=== PATIENT | male | born 1945 | race African-American/Black ===

== ENCOUNTER 2024-03-03 06:13 | Emergency (ER) | payer OTHER, MEDICAID ==
[~2024-03-03] VITALS: Ht 182.9 cm; Wt 159.0 kg
[2024-03-03 06:19] VITALS: TEMP 98.1; O2SAT 98
[2024-03-03 07:26] LABS: BASOPHILS % 0.3 % (0.0-2.0); EOSINOPHILS % 1.1 % (0.0-5.0); HEMATOCRIT. 33.4 % (42.0-52.0); HEMOGLOBIN. 10.7 g/dL (14.0-18.0); LYMPHOCYTES % 14.4 % (20.0-50.0); MEAN CORPUSCULAR HEMOGLOBIN 35.4 pg (28.0-32.0); MEAN CORPUSCULAR HGB CONC 32.1 g/dL (31.0-37.0); MEAN CORPUSCULAR VOLUME 110.3 fL (80.0-94.0); MEAN PLATELET VOLUME 7.7 fl (7.4-10.4); MONOCYTES % 10.7 % (2.0-8.0); NEUTROPHILS % 73.5 % (40.0-76.0); PLATELET 188 x1000/uL (130-400); RED BLOOD CELL COUNT 3.03 mill/uL (4.7-6.1); WHITE BLOOD COUNT 5.2 x1000/uL (4.5-11.0)
[2024-03-03 07:32] LABS: CHLORIDE 111 mEq/L (98-107); POTASSIUM 4.3 mEq/L (3.5-5.1); SODIUM 145 mEq/L (136-145)
[2024-03-03 07:33] LABS: CALCIUM 10.8 mg/dL (8.7-10.4); CARBON DIOXIDE 23 mEq/L (21-32)
[2024-03-03 07:37] LABS: CREATININE 4.4 mg/dL (0.6-1.3)
[2024-03-03 07:38] LABS: GLUCOSE 92 mg/dL (70-105); UREA NITROGEN BLOOD 45 mg/dL (9-23)
[2024-03-03 07:40] LABS: ALANINE AMINOTRANSFERASE < 7 IU/L (10-49); ALBUMIN 3.8 g/dL (3.2-4.8); ASPARTATE AMINOTRANSFERASE 11 IU/L (<34); BILIRUBIN TOTAL 0.5 mg/dL (0.1-1.0); PROTEIN TOTAL 6.2 g/dL (6.0-8.3)
[2024-03-03 07:41] LABS: ADD RBC MORPHOLOGY YES; DIFFERENTIAL COMMENT 1
[2024-03-03 09:03] LABS: PLATELET ESTIMATE NORMAL
[2024-03-03 09:04] LABS: ANISOCYTOSIS 1+
[2024-03-03] MEDS: LABETALOL 5MG/ML 4ML INJ IV ONE (12:09)
[2024-03-03 13:57] VITALS: BP 197/93; PULSE 99; RESP 13; O2SAT 97
== END 2024-03-03 16:33 | disposition home or self-care (01) ==
LOC: ER 06:13 → CANBEDREQ 13:53 → ER 16:33
DX: M79.631 Pain in right forearm (principal); N17.9 Acute kidney failure, unspecified; D64.9 Anemia, unspecified; I10 Essential (primary) hypertension; G20.A1 Parkinson's disease without dyskinesia, without mention of fluctuations; Z98.890 Other specified postprocedural states; Z85.46 Personal history of malignant neoplasm of prostate; Z88.0 Allergy status to penicillin
CPT/HCPCS: 99285; 96374; 93971; 80053; 85025; 36415; 93922; 73090; J3490; A4663; A4606

== ENCOUNTER 2024-03-05 14:12 | Emergency (ER) | payer OTHER, MEDICAID ==
[~2024-03-05] VITALS: Ht 182.9 cm; Wt 136.0 kg
[2024-03-05 14:17] VITALS: TEMP 98.1; O2SAT 97
[2024-03-05] MEDS ORDERED: IOHEXOL-350 100 ML BOTTLE ONE (15:19)
[2024-03-05] MEDS: ATORVASTATIN CALCIUM 40MG TABLET PO SCH (15:39)
[2024-03-05] MEDS: ASPIRIN 325MG EC TABLET PO ONE (15:39)
[2024-03-05 16:48] LABS: HEMATOCRIT. 34.2 % (42.0-52.0); HEMOGLOBIN. 11.1 g/dL (14.0-18.0); MEAN CORPUSCULAR HEMOGLOBIN 35.3 pg (28.0-32.0); MEAN CORPUSCULAR HGB CONC 32.5 g/dL (31.0-37.0); MEAN CORPUSCULAR VOLUME 108.6 fL (80.0-94.0); MEAN PLATELET VOLUME 8.5 fl (7.4-10.4); PLATELET 151 x1000/uL (130-400); RED BLOOD CELL COUNT 3.15 mill/uL (4.7-6.1); RED CELL DISTRIBUTION WIDTH 16.8 % (11.6-14.6); WHITE BLOOD COUNT 6.6 x1000/uL (4.5-11.0)
[2024-03-05 16:56] LABS: DIFFERENTIAL COMMENT 1; PROTHROMBIN TIME 10.9 sec (9.6-11.0)
[2024-03-05 17:03] LABS: CHLORIDE 112 mEq/L (98-107); POTASSIUM 4.4 mEq/L (3.5-5.1); SODIUM 144 mEq/L (136-145)
[2024-03-05 17:04] LABS: CALCIUM 10.5 mg/dL (8.7-10.4); CARBON DIOXIDE 16 mEq/L (21-32)
[2024-03-05 17:09] LABS: CREATININE 4.9 mg/dL (0.6-1.3); GLUCOSE 85 mg/dL (70-105); UREA NITROGEN BLOOD 58 mg/dL (9-23)
[2024-03-05 17:42] LABS: ETHANOL BLOOD < 10 mg/dL (<10); TROPONIN I HIGH SENSITIVITY 72 ng/L (3.0-53)
[2024-03-05 19:56] LABS: ANISOCYTOSIS 1+; PLATELET ESTIMATE NORMAL
[2024-03-05] MEDS: ASPIRIN 300MG SUPP PR ONE (20:06)
[2024-03-05 21:59] VITALS: BP 151/92; PULSE 87; RESP 18; O2SAT 98
== END 2024-03-05 22:18 | disposition short-term general hospital (02) ==
LOC: ER 14:16 → EDBEDREQ 14:41 → ER 22:18
DX: R29.810 Facial weakness (principal); I10 Essential (primary) hypertension; N28.9 Disorder of kidney and ureter, unspecified; Z88.0 Allergy status to penicillin
CPT/HCPCS: 80048; 80320; 85025; 85610; 84484; 36415; 71045; 70496; 70498; 70450; 93005; 99291; Q9967; G0480

== ENCOUNTER 2024-05-15 22:28 | Emergency (ER) | payer OTHER, MEDICAID ==
[~2024-05-15] VITALS: Ht 167.6 cm; Wt 119.0 kg
[2024-05-15 22:34] VITALS: O2SAT 98
[2024-05-15 23:12] LABS: HEMATOCRIT. 37.2 % (42.0-52.0); HEMOGLOBIN. 11.9 g/dL (14.0-18.0); MEAN CORPUSCULAR HEMOGLOBIN 32.6 pg (28.0-32.0); MEAN CORPUSCULAR HGB CONC 31.9 g/dL (31.0-37.0); MEAN CORPUSCULAR VOLUME 102.1 fL (80.0-94.0); MEAN PLATELET VOLUME 9.4 fl (7.4-10.4); PLATELET 147 x1000/uL (130-400); RED BLOOD CELL COUNT 3.64 mill/uL (4.7-6.1); RED CELL DISTRIBUTION WIDTH 16.6 % (11.6-14.6); WHITE BLOOD COUNT 7.4 x1000/uL (4.5-11.0)
[2024-05-15 23:20] LABS: DIFFERENTIAL COMMENT 1
[2024-05-15 23:26] LABS: CHLORIDE 97 mEq/L (98-107); POTASSIUM 4.3 mEq/L (3.5-5.1); SODIUM 140 mEq/L (136-145)
[2024-05-15 23:27] LABS: CARBON DIOXIDE 30 mEq/L (21-32)
[2024-05-15 23:28] LABS: CALCIUM 11.4 mg/dL (8.7-10.4)
[2024-05-15 23:32] LABS: GLUCOSE 166 mg/dL (70-105); TROPONIN I HIGH SENSITIVITY 35 ng/L (3.0-53)
[2024-05-15 23:33] LABS: PARTIAL THROMBOPLASTIN TIME 23.5 sec (23.4-31.0); PROTHROMBIN TIME 10.5 sec (9.6-11.0); UREA NITROGEN BLOOD 66 mg/dL (9-23)
[2024-05-16 00:05] LABS: ETHANOL BLOOD < 10 mg/dL (<10)
[2024-05-16 00:13] LABS: CREATININE 5.8 mg/dL (0.6-1.3)
[2024-05-16] MEDS: ACETAMINOPHEN 325MG TABLET PO NR (01:04)
[2024-05-16 01:19] LABS: ANISOCYTOSIS 1+; PLATELET ESTIMATE NORMAL
[2024-05-16 03:33] LABS: TROPONIN I HIGH SENSITIVITY 47 ng/L (3.0-53)
[2024-05-16] MEDS: MORPHINE SULFATE 4 MG/ML INJ (FOR IV/IM USE) IV ONE (04:20)
[2024-05-16] MEDS: HYDROCODONE/ACETAMINOPHEN 5/325MG TABLET PO ONE (04:23)
[2024-05-16 05:58] VITALS: BP 114/75; PULSE 63; RESP 14; TEMP 36.4; O2SAT 95
== END 2024-05-16 06:20 | disposition short-term general hospital (02) ==
LOC: ER 22:28 → EDBEDREQ 22:48 → ER 05-16 06:20
DX: R53.1 Weakness (principal); R07.89 Other chest pain; R94.31 Abnormal electrocardiogram [ECG] [EKG]; G20.A1 Parkinson's disease without dyskinesia, without mention of fluctuations; I12.0 Hypertensive chronic kidney disease with stage 5 chronic kidney disease or end stage renal disease; N18.6 End stage renal disease; I25.2 Old myocardial infarction; Z85.46 Personal history of malignant neoplasm of prostate; Z88.0 Allergy status to penicillin
CPT/HCPCS: 36415; 71045; 80048; 80320; 83880; 84484; 85025; 93005; 99285; G0480

== ENCOUNTER 2024-07-27 19:10 | Inpatient (IN) | payer OTHER, MEDICAID ==
[~2024-07-27] VITALS: Ht 152.4 cm; Wt 107.5 kg
[2024-07-27 19:27] VITALS: RESP 16
[2024-07-27 19:44] LABS: BASOPHILS % 0.3 % (0.0-2.0); EOSINOPHILS % 0.8 % (0.0-5.0); HEMOGLOBIN. 8.9 g/dL (14.0-18.0); LYMPHOCYTES % 11.7 % (20.0-50.0); MEAN CORPUSCULAR HEMOGLOBIN 34.3 pg (28.0-32.0); MEAN CORPUSCULAR HGB CONC 33.1 g/dL (31.0-37.0); MEAN CORPUSCULAR VOLUME 103.6 fL (80.0-94.0); MEAN PLATELET VOLUME 8.6 fl (7.4-10.4); MONOCYTES % 4.7 % (2.0-8.0); NEUTROPHILS % 82.5 % (40.0-76.0); PLATELET 177 x1000/uL (130-400); RED CELL DISTRIBUTION WIDTH 19.9 % (11.6-14.6); WHITE BLOOD COUNT 6.8 x1000/uL (4.5-11.0)
[2024-07-27 19:45] LABS: BG BASE EXCESS -8.8 mmol/L (-2.0-3.0); BG CARBOXYHEMOGLOBIN 0.8 % (0.5-1.5); BG DEOXYHEMOGLOBIN 0.2 % (0.0-5.0); BG FRACTION INSPIRED OXYGEN 80; BG HCO3 ACT 16.3 mmol/L (21.0-28.0); BG METHEMOGLOBIN 0.3 % (0.5-1.5); BG OXYGEN SATURATION 99.8 % (94.0-98.0); BG OXYHEMOGLOBIN 98.7 % (94.0-98.0); BG PCO2 32.2 mmHg (35.0-48.0); BG PH 7.323 (7.350-7.450); BG PO2 299.2 mmHg (83.0-108.0); BG SAMPLE SITE RIGHT RADIAL; BG TOTAL HEMOGLOBIN 9.5 g/dL (13.5-17.5); BG VENT MODE MASK - BIPAP
[2024-07-27] MEDS: SODIUM CHLORIDE 0.9% (SEPSIS BOLUS) IV ONE (19:45)
[2024-07-27] MEDS: LEVOFLOXACIN 750MG PREMIX 150 ML IV ONE (19:45)
[2024-07-27 19:46] LABS: DIFFERENTIAL COMMENT 1
[2024-07-27 19:53] LABS: CHLORIDE 104 mEq/L (98-107); POTASSIUM 4.1 mEq/L (3.5-5.1); SODIUM 135 mEq/L (136-145)
[2024-07-27 19:54] LABS: CARBON DIOXIDE 18 mEq/L (21-32)
[2024-07-27 19:55] LABS: CALCIUM 9.1 mg/dL (8.7-10.4)
[2024-07-27 20:01] LABS: INR 1.3; PROTHROMBIN TIME 13.2 sec (9.6-11.0)
[2024-07-27 20:06] LABS: GLUCOSE 62 mg/dL (70-105); UREA NITROGEN BLOOD 83 mg/dL (9-23)
[2024-07-27 20:08] LABS: ALANINE AMINOTRANSFERASE < 7 IU/L (10-49); ASPARTATE AMINOTRANSFERASE 72 IU/L (<34); BILIRUBIN DIRECT 0.2 mg/dL (<=3.0); BILIRUBIN TOTAL 0.6 mg/dL (0.1-1.0); PROTEIN TOTAL 5.2 g/dL (6.0-8.3)
[2024-07-27 20:33] LABS: TROPONIN I HIGH SENSITIVITY 90 ng/L (3.0-53)
[2024-07-27 20:34] LABS: CREATININE 5.5 mg/dL (0.6-1.3)
[2024-07-27] MEDS: VANCOMYCIN 1G PREMIX 200 ML IV ONE (21:07)
[2024-07-27 21:26] VITALS: RESP 18
[2024-07-27 22:27] LABS: D-DIMER 3.56 mg/L FEU (<0.50); PARTIAL THROMBOPLASTIN TIME 41.9 sec (23.4-31.0)
[2024-07-27] MEDS: DEXTROSE 50% WATER 50ML SYRINGE IV ONE ×2 (22:32→23:00)
[2024-07-27] MEDS ORDERED: NOREPINEPHRINE 8 MG in DEXT 5% WATER 242 ML IV STA (22:48)
[2024-07-27] MEDS: NOREPINEPHRINE 8MG/250ML PMX 250ML IV PRN (23:05)
[2024-07-27] MEDS ORDERED: HEPARIN 25,000 UNITS PREMIX 250 ML IV STA (23:07)
[2024-07-27] MEDS ORDERED: VANCOMYCIN 1G PREMIX 200 ML IV NR (23:30)
[2024-07-28] VITALS (87 sets, daily range): BP systolic 92–163; BP diastolic 54–130; PULSE 72–99; RESP 8–39; TEMP 36.2–36.6; O2SAT 97–100
[2024-07-28] MEDS ORDERED: ACETAMINOPHEN 325MG TABLET PO PRN (00:30)
[2024-07-28] MEDS ORDERED: IPRATROPIUM/ALBUTEROL 0.5-3(2.5)MG/3ML NEB HHN PRN (00:30)
[2024-07-28] MEDS ORDERED: ONDANSETRON HCL 4MG/2ML INJ IV PRN (00:30)
[2024-07-28] MEDS: HEPARIN 80 UNITS/KG BOLUS IV SCH (00:34)
[2024-07-28] MEDS: HEPARIN 25,000 UNITS PREMIX 250 ML IV SCH (00:39)
[2024-07-28] MEDS: HEPARIN 25,000 UNITS PREMIX 250 ML IV STA (00:39)
[2024-07-28] MEDS: HEPARIN 5000 UNITS/ML VIAL IV ONE (00:40)
[2024-07-28] MEDS: IPRATROPIUM/ALBUTEROL 0.5-3(2.5)MG/3ML NEB HHN SCH (01:48)
[2024-07-28] MEDS: RACEPINEPHRINE 2.25% 0.5ML NEB VIAL HHN PRN (02:37)
[2024-07-28] MEDS: DEXAMETHASONE 10 MG/ML VIAL IV SCH (03:52)
[2024-07-28] MEDS: VANCOMYCIN 1G PREMIX 200 ML IV NR (04:03)
[2024-07-28] MEDS: MAGNESIUM 2 G PREMIX 50 ML IV NR (04:13)
[2024-07-28] MEDS: DEXT 5%/0.45% NACL 1000ML 1,000 ML IV SCH (04:14)
[2024-07-28] MEDS ORDERED: HEPARIN BOLUS PRN aPTT 37-44 IV (06:00)
[2024-07-28] MEDS ORDERED: DEXAMETHASONE 10 MG/ML VIAL IV SCH (06:00)
[2024-07-28 07:22] LABS: BG CARBOXYHEMOGLOBIN 0.6 % (0.5-1.5); BG DEOXYHEMOGLOBIN 5.8 % (0.0-5.0); BG FRACTION INSPIRED OXYGEN 21; BG HCO3 ACT 12.9 mmol/L (21.0-28.0); BG OXYGEN SATURATION 94.2 % (94.0-98.0); BG OXYHEMOGLOBIN 93.6 % (94.0-98.0); BG PCO2 30.1 mmHg (35.0-48.0); BG PH 7.251 (7.350-7.450); BG PO2 79.9 mmHg (83.0-108.0); BG SAMPLE SITE LEFT RADIAL; BG TOTAL HEMOGLOBIN 9.8 g/dL (13.5-17.5); BG VENT MODE ROOM AIR
[2024-07-28 07:22] LABS: BG BASE EXCESS -10.9 mmol/L (-2.0-3.0); BG CARBOXYHEMOGLOBIN 0.1 % (0.5-1.5); BG DEOXYHEMOGLOBIN 0.3 % (0.0-5.0); BG FRACTION INSPIRED OXYGEN 100; BG HCO3 ACT 15.3 mmol/L (21.0-28.0); BG METHEMOGLOBIN 0.3 % (0.5-1.5); BG OXYGEN SATURATION 99.7 % (94.0-98.0); BG OXYHEMOGLOBIN 99.3 % (94.0-98.0); BG PCO2 35.3 mmHg (35.0-48.0); BG PH 7.256 (7.350-7.450); BG PO2 438.2 mmHg (83.0-108.0); BG SAMPLE SITE RIGHT RADIAL; BG VENT MODE HIGH FLOW
[2024-07-28 07:56] LABS: HEMATOCRIT. 26.8 % (42.0-52.0); MEAN CORPUSCULAR HEMOGLOBIN 35.1 pg (28.0-32.0); MEAN CORPUSCULAR HGB CONC 33.5 g/dL (31.0-37.0); MEAN CORPUSCULAR VOLUME 104.5 fL (80.0-94.0); MEAN PLATELET VOLUME 9.3 fl (7.4-10.4); PLATELET 145 x1000/uL (130-400); RED BLOOD CELL COUNT 2.56 mill/uL (4.7-6.1); RED CELL DISTRIBUTION WIDTH 20.1 % (11.6-14.6)
[2024-07-28] MEDS ORDERED: NOREPINEPHRINE 8 MG in DEXT 5% WATER 242 ML IV PRN (08:00)
[2024-07-28 08:02] LABS: DIFFERENTIAL COMMENT 1
[2024-07-28 08:09] LABS: CREATINE KINASE MB FRACTION 30.4 ng/mL (0.5-3.6)
[2024-07-28] MEDS ORDERED: NOREPINEPHRINE 8MG/250ML PMX 250 ML IV PRN (08:30)
[2024-07-28 08:54] LABS: CALCIUM 8.6 mg/dL (8.7-10.4); CREATININE 4.9 mg/dL (0.6-1.3); POTASSIUM 4.5 mEq/L (3.5-5.1); T4 FREE 1.15 ng/dL (0.89-1.76); THYROID STIMULATING HORMONE 2.46 uIU/mL (0.55-4.78)
[2024-07-28] MEDS: FAMOTIDINE 20MG/2ML VIAL IV SCH (09:29)
[2024-07-28] MEDS: NOREPINEPHRINE 8MG/250ML PMX 250 ML IV PRN (09:30)
[2024-07-28] MEDS: LIDOCAINE HCL 1% 10 MG/ML 10ML VIAL ONE (09:44)
[2024-07-28 10:02] LABS: ANISOCYTOSIS 2+; PLATELET ESTIMATE NORMAL
[2024-07-28 11:40] LABS: FOLIC ACID (FOLATE) SERUM > 20.00 ng/mL (>5.38)
[2024-07-28 11:41] LABS: VITAMIN B12 SERUM 694 pg/mL (211-911)
[2024-07-28] MEDS ORDERED: CARV3.1242 PO (11:48)
[2024-07-28] MEDS ORDERED: APIX5TAB PO (11:48)
[2024-07-28 11:54] LABS: HEMATOCRIT. 26.9 % (42.0-52.0); HEMOGLOBIN. 8.9 g/dL (14.0-18.0); MEAN CORPUSCULAR HEMOGLOBIN 34.7 pg (28.0-32.0); MEAN CORPUSCULAR HGB CONC 33.2 g/dL (31.0-37.0); MEAN CORPUSCULAR VOLUME 104.5 fL (80.0-94.0); MEAN PLATELET VOLUME 9.3 fl (7.4-10.4); PLATELET 135 x1000/uL (130-400); RED BLOOD CELL COUNT 2.58 mill/uL (4.7-6.1); RED CELL DISTRIBUTION WIDTH 20.5 % (11.6-14.6); WHITE BLOOD COUNT 9.3 x1000/uL (4.5-11.0)
[2024-07-28 11:55] LABS: CHLORIDE 108 mEq/L (98-107); POTASSIUM 4.6 mEq/L (3.5-5.1); SODIUM 136 mEq/L (136-145)
[2024-07-28] MEDS ORDERED: CARB-121 MT (11:55)
[2024-07-28] MEDS ORDERED: LIP40 MT (11:55)
[2024-07-28] MEDS ORDERED: CINA30 PO (11:55)
[2024-07-28] MEDS ORDERED: ALLO100T57 PO (11:55)
[2024-07-28] MEDS ORDERED: FURO-152 PO (11:55)
[2024-07-28 11:56] LABS: CALCIUM 8.7 mg/dL (8.7-10.4); CARBON DIOXIDE 17 mEq/L (21-32)
[2024-07-28 12:01] LABS: GLUCOSE 104 mg/dL (70-105)
[2024-07-28 12:02] LABS: UREA NITROGEN BLOOD 77 mg/dL (9-23)
[2024-07-28 12:03] LABS: ALANINE AMINOTRANSFERASE < 7 IU/L (10-49); ALBUMIN 2.9 g/dL (3.2-4.8); ASPARTATE AMINOTRANSFERASE 63 IU/L (<34); DIFFERENTIAL COMMENT 1
[2024-07-28 12:04] LABS: BILIRUBIN TOTAL 0.4 mg/dL (0.1-1.0); PHOSPHORUS 6.1 mg/dL (2.5-4.9); PROTEIN TOTAL 5.1 g/dL (6.0-8.3)
[2024-07-28 12:07] LABS: CREATININE 5.2 mg/dL (0.6-1.3)
[2024-07-28 12:19] LABS: HEPATITIS B SURFACE ANTIGEN NEGATIVE (Negative)
[2024-07-28 12:40] LABS: HEPATITIS C AB NON REACTIVE (Neg) (Negative)
[2024-07-28 12:44] LABS: PLATELET ESTIMATE NORMAL
[2024-07-28 12:45] LABS: ANISOCYTOSIS 2+
[2024-07-28] MEDS: SODIUM BICARBONATE 650MG TABLET PO SCH (13:09)
[2024-07-28] MEDS: HEPARIN BOLUS PRN aPTT <36 IV (14:22)
[2024-07-28] MEDS: HYDROCODONE/ACETAMINOPHEN 5/325MG TABLET PO PRN (19:35)
[2024-07-28 20:53] LABS: CREATINE KINASE MB FRACTION 19.6 ng/mL (0.5-3.6)
[2024-07-28 21:53] LABS: CLARITY URINE TURBID (CLEAR); COLOR URINE YELLOW (YELLOW); GLUCOSE URINE NEGATIVE (NEGATIVE); KETONES URINE NEGATIVE (NEGATIVE); LEUKOCYTE ESTERASE URINE 3+ (NEGATIVE); NITRITE URINE POSITIVE (NEGATIVE); OCCULT BLOOD URINE 3+ (NEGATIVE); PH URINE 8.5 (4.5-8.0); PROTEIN URINE 2+ (NEGATIVE); SPECIFIC GRAVITY URINE 1.009 (1.005-1.030); UROBILINOGEN URINE 0.2 E.U./dL (0.2-1.0)
[2024-07-28 22:05] LABS: *AMPHETAMINES SCREEN URINE NEGATIVE (NEGATIVE); *BARBITURATES SCREEN URINE NEGATIVE (NEGATIVE); *BENZODIAZEPINES SCREEN URINE NEGATIVE (NEGATIVE); *COCAINE SCREEN URINE NEGATIVE (NEGATIVE); CANNABINOID URINE SCREEN NEGATIVE (NEGATIVE); ECSTASY MDMA SCREEN URINE NEGATIVE (NEGATIVE); METHADONE URINE SCREEN NEGATIVE (NEGATIVE); OPIATES URINE SCREEN NEGATIVE (NEGATIVE); PHENCYCLIDINE URINE SCREEN NEGATIVE (NEGATIVE)
[2024-07-28 22:09] LABS: BACTERIA URINE 2+; SQUAMOUS EPITHELIAL CELL URINE 1+ /lpf (RARE/1+)
[2024-07-28] MEDS ORDERED: NALOXONE HCL 0.4MG/ML VIAL IV PRN (22:45)
[2024-07-29] VITALS (57 sets, daily range): BP systolic 57–178; BP diastolic 46–141; PULSE 96–122; RESP 9–26; TEMP 36.5–37.1; O2SAT 92–100
[2024-07-29] MEDS: ENOXAPARIN 100MG/ML SYR SUBCUT SCH (00:42)
[2024-07-29 05:53] LABS: HEMATOCRIT. 23.2 % (42.0-52.0); HEMOGLOBIN. 7.8 g/dL (14.0-18.0); MEAN CORPUSCULAR HEMOGLOBIN 34.8 pg (28.0-32.0); MEAN CORPUSCULAR HGB CONC 33.6 g/dL (31.0-37.0); MEAN CORPUSCULAR VOLUME 103.6 fL (80.0-94.0); MEAN PLATELET VOLUME 9.5 fl (7.4-10.4); PLATELET 109 x1000/uL (130-400); RED BLOOD CELL COUNT 2.24 mill/uL (4.7-6.1); RED CELL DISTRIBUTION WIDTH 20.2 % (11.6-14.6); WHITE BLOOD COUNT 10.9 x1000/uL (4.5-11.0)
[2024-07-29 06:07] LABS: CHLORIDE 107 mEq/L (98-107); POTASSIUM 4.9 mEq/L (3.5-5.1); SODIUM 135 mEq/L (136-145)
[2024-07-29 06:08] LABS: CALCIUM 8.5 mg/dL (8.7-10.4); CARBON DIOXIDE 17 mEq/L (21-32)
[2024-07-29 06:38] LABS: GLUCOSE 106 mg/dL (70-105)
[2024-07-29 06:39] LABS: LDL CHOLESTEROL 16 mg/dL (5-100); TRIGLYCERIDE 54 mg/dL (0-150); UREA NITROGEN BLOOD 82 mg/dL (9-23)
[2024-07-29 06:41] LABS: CHOLESTEROL 72 mg/dL (<200); HDL CHOLESTEROL 34 mg/dL (>55); PHOSPHORUS 5.8 mg/dL (2.5-4.9)
[2024-07-29 06:42] LABS: CREATININE 5.1 mg/dL (0.6-1.3)
[2024-07-29 07:27] LABS: DIFFERENTIAL COMMENT 1
[2024-07-29] MEDS: LEVOFLOXACIN 750MG PREMIX 150 ML IV SCH (10:13)
[2024-07-29] MEDS ORDERED: LEVOFLOXACIN 750MG PREMIX 150 ML IV SCH (11:00)
[2024-07-29 11:20] LABS: ANISOCYTOSIS 2+; PLATELET ESTIMATE DECREASED
[2024-07-29] MEDS: ENOXAPARIN 40MG/0.4ML SYR SUBCUT SCH (21:18)
[2024-07-29] MEDS: METOPROLOL TARTRATE 50MG TABLET PO SCH (21:19)
[2024-07-29] MEDS: BLOOD SUGAR DIAGNOSTIC STRIP TEST SCH (23:00)
[2024-07-29] MEDS ORDERED: DEXTROSE 50% WATER 50ML SYRINGE IV PRN (23:00)
[2024-07-30] VITALS (16 sets, daily range): BP systolic 126–163; BP diastolic 73–93; PULSE 86–116; RESP 10–25; TEMP 36.2–37.2; O2SAT 94–99
[2024-07-30 05:46] LABS: HEMATOCRIT 23.8 % (42.0-52.0); HEMOGLOBIN 7.6 g/dL (14.0-18.0); MEAN CORPUSCULAR HEMOGLOBIN 34.3 pg (28.0-32.0); MEAN CORPUSCULAR HGB CONC 32.1 g/dL (31.0-37.0); MEAN CORPUSCULAR VOLUME 106.9 fL (80.0-94.0); PLATELET 112 x1000/uL (130-400); RED BLOOD CELL COUNT 2.23 mill/uL (4.7-6.1); RED CELL DISTRIBUTION WIDTH 21.2 % (11.6-14.6); WHITE BLOOD COUNT 10.5 x1000/uL (4.5-11.0)
[2024-07-30 05:52] LABS: CARBON DIOXIDE 16 mEq/L (21-32); CHLORIDE 108 mEq/L (98-107); POTASSIUM 4.9 mEq/L (3.5-5.1); SODIUM 136 mEq/L (136-145)
[2024-07-30 05:53] LABS: CALCIUM 9.1 mg/dL (8.7-10.4)
[2024-07-30 05:58] LABS: GLUCOSE 151 mg/dL (70-105); UREA NITROGEN BLOOD 85 mg/dL (9-23)
[2024-07-30] MEDS ORDERED: PHENYLEPHRINE 50MG/250ML PMX 250 ML IV PRN (06:00)
[2024-07-30 06:01] LABS: PHOSPHORUS 5.3 mg/dL (2.5-4.9)
[2024-07-30 06:29] LABS: CREATININE 5.2 mg/dL (0.6-1.3)
[2024-07-30] MEDS: FUROSEMIDE 20MG/2ML VIAL IVP SCH (09:35)
[2024-07-30] MEDS: ASPIRIN 81MG TABLET PO SCH (09:36)
[2024-07-31] MEDS ORDERED: LEVOFLOXACIN 500MG PREMIX 100 ML IV SCH (11:00)
== END 2024-07-30 19:47 | disposition short-term general hospital (02) | DRG 871 ==
LOC: ER 19:10 → CVICU 23:10 → EDBEDREQ 23:12 → EDBEDREQSVC 23:12 → ENRESERV 23:41 → 7WST 07-30 10:22
PROVIDERS: ADMIT Hospitalist; ATTEND Hospitalist
PROC: 5A09357 Assistance with Respiratory Ventilation, Less than 24 Consecutive Hours, Continuous Positive Airway Pressure (ICD-10-PCS; principal; 2024-07-27)
PROC: 5A0945A Assistance with Respiratory Ventilation, 24-96 Consecutive Hours, High Flow/Velocity Cannula (ICD-10-PCS; 2024-07-28)
PROC: 05HY33Z Insertion of Infusion Device into Upper Vein, Percutaneous Approach (ICD-10-PCS; 2024-07-28)
PROC: B54MZZA Ultrasonography of Right Upper Extremity Veins, Guidance (ICD-10-PCS; 2024-07-28)
DX: A41.9 Sepsis, unspecified organism (principal); G82.50 Quadriplegia, unspecified; J96.01 Acute respiratory failure with hypoxia; G93.41 Metabolic encephalopathy; N18.6 End stage renal disease; I21.3 ST elevation (STEMI) myocardial infarction of unspecified site; E44.1 Mild protein-calorie malnutrition; Z68.42 Body mass index [BMI] 45.0-49.9, adult; E87.20 Acidosis, unspecified; N17.9 Acute kidney failure, unspecified; M62.82 Rhabdomyolysis; I13.2 Hypertensive heart and chronic kidney disease with heart failure and with stage 5 chronic kidney disease, or end stage renal disease; E87.1 Hypo-osmolality and hyponatremia; N39.0 Urinary tract infection, site not specified; I69.354 Hemiplegia and hemiparesis following cerebral infarction affecting left non-dominant side; G20.A1 Parkinson's disease without dyskinesia, without mention of fluctuations; E11.22 Type 2 diabetes mellitus with diabetic chronic kidney disease; D53.9 Nutritional anemia, unspecified; E11.649 Type 2 diabetes mellitus with hypoglycemia without coma; E78.5 Hyperlipidemia, unspecified; G89.4 Chronic pain syndrome; R13.10 Dysphagia, unspecified; R53.81 Other malaise; T78.3XXA Angioneurotic edema, initial encounter; E66.01 Morbid (severe) obesity due to excess calories; I50.9 Heart failure, unspecified; E83.39 Other disorders of phosphorus metabolism; E83.42 Hypomagnesemia; M50.30 Other cervical disc degeneration, unspecified cervical region; Z85.46 Personal history of malignant neoplasm of prostate; S22.41XD Multiple fractures of ribs, right side, subsequent encounter for fracture with routine healing; Z86.718 Personal history of other venous thrombosis and embolism; X58.XXXD Exposure to other specified factors, subsequent encounter; Z91 Personal risk factors, not elsewhere classified; Z79.01 Long term (current) use of anticoagulants; Z79.899 Other long term (current) drug therapy; Z88.0 Allergy status to penicillin; Z99.3 Dependence on wheelchair
CPT/HCPCS: 36415; 36573; 36600; 70490; 71045; 78580; 80048; 80053; 80061; 80076; 80202; 80305; 81003; 82375; 82550; 82553; 82607; 82746; 82805; 82962; 83605; 83735; 83880; 84100; 84145; 84439; 84443; 84484; 85025; 85027; 85379; 86705; 87070; 87077; 87186; 87340; 93005; 93306; 93308; 93970; 94070; 94640; 94660; 94664; 98960; 99291; A4606; C1725; J1100; J1644; J1650; J1940; J1956; J2003; J3370; J3475; J3490; J7030; J7060